=== PATIENT | female | born 1950 | race Caucasian/White ===

== ENCOUNTER 2018-02-17 15:59 | Emergency (ER) | payer OTHER, BC ==
[~2018-02-17] VITALS: Ht 149.9 cm; Wt 82.5 kg
[~2018-02-17 15:59] MED LIST: ALTACE10 MG PO; AMBIEN10 MG PO; ARICEPT10 MG PO; ASPIR 8181 M1 PO; ATIVAN1 MG PO; CARDIZEM CD,CA240 MG PO; CARDIZEM CD300 MG PO; CELEBREX100 MG PO; CLARINEX5 MG PO; CLARITIN5 MG PO; CYMBALTA20 MG PO; CYMBALTA60 MG PO; DESYREL100 MG PO; ENABLEX15 MG PO; FIORICET 50-301 EACH PO; FLONASE16 G1 BOTH NARES; JANUVIA25 M1 PO; LEVAQUIN500 MG PO; LYRICA150 MG PO; LYRICA200 MG PO; MAXALT10 MG PO; METAXALONE800 MG PO; MS CONTIN,ORAMO15 M1 PO; MYRBETRIQ25 MG PO; NAMENDA5 MG PO; NEXIUM40 MG PO; NIASPAN500 MG PO; NORCO 10/3251 TABLET PO; NUCYNTA100 MG PO; OMEPRAZOLE40 M1 PO; ONDANSETRON ODT4 MG PO; OXYCODONE HCL10 MG PO; OXYCONTIN10 MG PO; PERCOCET 7.51 TABLET PO; PRANDIN1 MG PO; PRIMIDONE50 MG PO; PROTONIX40 MG PO; RAMIPRIL10 MG PO; SINGULAIR10 MG PO; SOMA250 MG PO; TRAMADOL HCL50 MG PO; VERAPAMIL HCL240 MG PO; VITAMIN D400 UNIT PO; VITAMIN D50000 UNI4 PO; VOLTAREN25 MG PO; VOLTAREN75 MG PO; XANAX0.5 MG PO; XANAX1 MG PO; ZETIA10 MG PO; ZOFRAN4 MG PO
[2018-02-17] MEDS ORDERED: LIDODERM 5% P1 PATCH TD (19:31)
[2018-02-17] MEDS ORDERED: BACLOFEN10 MG PO (19:31)
[2018-02-17] MEDS ORDERED: DICLOFENAC POTA50 MG PO (19:32)
[2018-02-17 19:42] VITALS: BP 155/79
== END 2018-02-17 19:49 | disposition home or self-care (01) ==
LOC: EME 15:59
DX: S70.02XA Contusion of left hip, initial encounter (principal); G89.29 Other chronic pain; W18.30XA Fall on same level, unspecified, initial encounter; Y92.009 Unspecified place in unspecified non-institutional (private) residence as the place of occurrence of the external cause; F32.9 Major depressive disorder, single episode, unspecified; F41.9 Anxiety disorder, unspecified; E11.9 Type 2 diabetes mellitus without complications; I10 Essential (primary) hypertension; M79.7 Fibromyalgia; Z88.2 Allergy status to sulfonamides; Z88.8 Allergy status to other drugs, medicaments and biological substances
CPT/HCPCS: 73502; 99281; 99284